=== PATIENT | female | born 1955 | race American Indian/Alaskan Native ===

== ENCOUNTER 2018-12-26 10:47 | Day surgery (SDC) | payer MEDICARE ==
[2018-12-26] MEDS ORDERED: NACL 0.9% 1000 ML 1,000 ML IV SCH (12:00)
[2018-12-26] MEDS ORDERED: WATER FOR IRRIG STERILE IR ONE (12:05)
[2018-12-26] MEDS ORDERED: WATER FOR IRRIG STERILE ONE (12:06)
--- NOTE | 2018-12-26 13:15 | Anesthesia Consultation ---
Anesthesia Consult and Med Hx Date of service: 12/26/18 - Airway Anesthetic Teeth Evaluation: Dentures ROM Head & Neck: Adequate Mental/Hyoid Distance: Adequate Mallampati Class: Class II Intubation Access Assessment: Probably Good - Pulmonary Exam CTA: Yes - Cardiac Exam Cardiac Exam: RRR - Pre-Operative Health Status ASA Pre-Surgery Classification: ASA3 Proposed Anesthetic Plan: MAC - Pulmonary Hx Smoking: No Hx Respiratory Symptoms: No Hx Sleep Apnea: Yes - Cardiovascular System Hx Hypertension: Yes Hx Heart Attack/AMI: No Hx Percutaneous Transluminal Coronary Angioplasty (PTCA): No Hx Cardia Arrhythmia: No - Central Nervous System CVA: No Hx Psychiatric Problems: No - Gastrointestinal Hx Gastroesophageal Reflux Disease: No - Endocrine Hx Renal Disease: No Hx Liver Disease: No Hx Non-Insulin Dependent Diabetes: Yes Hx Thyroid Disease: No - Other Systems Hx Obesity: Yes - Additional Comments Anesthesia Medical History Comments: No hx anesthetic complications.
--- NOTE | 2018-12-26 13:15 | Anesthesia Day of Surgery ---
Anesthesia Day of Surgery - Day of Surgery Patient Examined: Yes Patient H&P Reviewed: Yes Patient is NPO: Yes
[2018-12-26] MEDS ORDERED: DIPRIVAN 10 MG/ML IV ONE ×3 (14:48→14:49)
[2018-12-26] MEDS ORDERED: VERSED ONE (14:48)
--- NOTE | 2018-12-26 15:23 | Operative Report ---
Operative Report Operative Report: Date of procedure: 12/26/2018 Procedure: Colonoscopy with hot biopsy polypectomy.. Attending physician: Jermaine Luciano MD Rug Sizer: Jermaine Luciano MD Indication: Patient is a 63-year-old female who presents for screening colonoscopy. Patient has a past history of colon polyps. This colonoscopy serves to evaluate patient so that treatment may be directed based on the findings. Consent: Informed consent was obtained after advising the patient and family regarding nature of this procedure, its indications, potential benefits as well as possible complications including but not limited to bleeding perforation and adverse reaction to medication, infection as well as other cardiopulmonary complications. An informed written and verbal consent was then obtained after due opportunity was provided for questions and answers. Monitoring: Patient was monitored continuously with pulse oximetry and el ectrocardiographic recordings as well as blood pressure recordings. Vital signs remained stable throughout this procedure with no untoward events. Preoperative assessment: Patient was assessed immediately prior to this procedure for capacity to tolerate monitored anesthesia care and moderate sedation as well as general anesthesia. Patient's ASA classification is 2, Mallampati class is 2, Hyomental distance is 3. Instrument: Olympus video colonoscope Medications: Propofol given intravenously in divided doses. For details please refer to anesthesia records. Description of procedure: Patient was placed in the left lateral decubitus position after achieving sedation, a digital rectal examination was performed following which the colonoscope was introduced into the anal verge and advanced to the cecum which was identified by the ileocecal valve, the appendiceal orifice, as well as by the cecal strap and direct transillumination. The colonoscope was subsequently withdrawn with careful inspection of all mucosal surfaces. Patient tolerated this procedure well and was subsequently taken to the recovery room. The following findings were noted. Findings: Patient had a diminutive sigmoid colon measuring about 5 mm which was removed by hot biopsy polypectomy. The rest of the colon to the cecum was normal. The preparation was adequate. On the retroflex view at the anal verge, patient had internal hemorrhoids. Impression: Diminutive Sigmoid colon polyp status post hot biopsy polypectomy. Internal Hemorrhoids. Plan: Follow pathology report High-fiber diet. Repeat colonoscopy in 5 years.
--- NOTE | 2018-12-26 15:23 | Discharge Summary ---
Short Stay Discharge Plan Activity: advance as tolerated Weight Bearing Status: Weight Bear as Tolerated Diet: regular Follow up with: HERBERT DELAROSA MD [Primary Care Provider] - 7 Days
[2018-12-26 15:51] VITALS: BP 139/80
== END 2018-12-26 10:48 | disposition home or self-care (01) ==
LOC: GIO 10:47
PROVIDERS: ATTEND Internal Medicine Gastroenterology
DX: Z12.11 Encounter for screening for malignant neoplasm of colon (principal); K63.5 Polyp of colon; K64.8 Other hemorrhoids; E78.00 Pure hypercholesterolemia, unspecified; I10 Essential (primary) hypertension; G47.30 Sleep apnea, unspecified; K21.9 Gastro-esophageal reflux disease without esophagitis; E66.9 Obesity, unspecified; M19.90 Unspecified osteoarthritis, unspecified site; E11.9 Type 2 diabetes mellitus without complications; Z98.890 Other specified postprocedural states; Z79.899 Other long term (current) drug therapy; Z79.82 Long term (current) use of aspirin; Z68.41 Body mass index [BMI] 40.0-44.9, adult; Z90.710 Acquired absence of both cervix and uterus; Z98.42 Cataract extraction status, left eye; Z98.41 Cataract extraction status, right eye
CPT/HCPCS: 45384; 82962; 88305; J2250; J2704; J7030

== ENCOUNTER 2020-11-12 15:47 | Emergency (ER) | payer OTHER, MEDICARE ==
[2020-11-12 18:14] VITALS: BP 175/92
[2020-11-12] MEDS ORDERED: ACETAMINOPHEN 500 MG TAB PO ONE (22:11)
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
== END 2020-11-13 02:00 | disposition home or self-care (01) ==
LOC: ED 15:47
DX: M62.838 Other muscle spasm (principal); M54.2 Cervicalgia; M62.830 Muscle spasm of back; M54.5 Low back pain; R51.9 Headache, unspecified; I10 Essential (primary) hypertension; K21.9 Gastro-esophageal reflux disease without esophagitis; E11.9 Type 2 diabetes mellitus without complications; Z98.890 Other specified postprocedural states; Z79.82 Long term (current) use of aspirin; Z79.899 Other long term (current) drug therapy; V89.2XXA Person injured in unspecified motor-vehicle accident, traffic, initial encounter; Y93.89 Activity, other specified; Y92.488 Other paved roadways as the place of occurrence of the external cause; Y99.8 Other external cause status
CPT/HCPCS: 70450; 72125; 72131; 99283